=== PATIENT | female | born 1965 | race African-American/Black ===

== ENCOUNTER 2025-08-14 13:33 | Emergency (ER) | payer OTHER ==
[2025-08-14] MEDS: Acetaminophen/HYDROcodone 325-5 MG Tab PO ONE (14:59)
[2025-08-14 15:56] VITALS: BP 122/66; PULSE 85
== END 2025-08-14 15:56 | disposition home or self-care (01) ==
LOC: MW.ED 13:33
DX: M54.41 Lumbago with sciatica, right side (principal); E11.9 Type 2 diabetes mellitus without complications; Z75.3 Unavailability and inaccessibility of health-care facilities; Z91.012 Allergy to eggs; Z91.040 Latex allergy status; Z91.09 Other allergy status, other than to drugs and biological substances; Z88.8 Allergy status to other drugs, medicaments and biological substances; Z79.4 Long term (current) use of insulin; Z79.899 Other long term (current) drug therapy
CPT/HCPCS: 72131; 99283; A9270